=== PATIENT | male | born 1955 | race Caucasian/White ===

== ENCOUNTER 2021-06-15 19:33 | Emergency (ER) | payer MEDICARE, OTHER ==
[2021-06-15 19:50] VITALS: BP 159/81; PULSE 72; RESP 22; TEMP 98.5
--- NOTE | 2021-06-15 20:26 | ED ---
Recheck HPI - General Chief Complaint: Recheck/Abnormal Lab/Rx Stated Complaint: Covid Test Time Seen by Provider: 06/15/21 20:16 Source: patient, RN notes reviewed Mode of arrival: ambulatory Limitations: no limitations - History of Present Illness Initial Comments: Patient is a 66-year-old male that presents to emergency department complaining of needing a Covid test returned [place]. He denied any other symptoms or complaints at this time. He was a well-appearing 66-year-old male who denied any shortness of breath headache nausea vomiting diarrhea constipation fever fatigue chills. - Related Data Allergies Allergy/AdvReac Type Severity Reaction Status Date / Time No Known Allergies Allergy Verified 06/15/21 19:50 Review of Systems ROS Statement: Those systems with pertinent positive or pertinent negative responses have been documented in the HPI. ROS Other: All systems not noted in ROS Statement are negative. Past Medical History Past Medical History: Hyperlipidemia History of Any Multi-Drug Resistant Organisms: None Reported Past Surgical History: No Surgical Hx Reported Past Psychological History: No Psychological Hx Reported Past Alcohol Use History: None Reported, Occasional Past Drug Use History: None Reported General Exam Limitations: no limitations General appearance: alert, in no apparent distress Head exam: Present: atraumatic, normocephalic, normal inspection Eye exam: Present: normal appearance, PERRL, EOMI. Absent: scleral icterus, conjunctival injection, periorbital swelling Neck exam: Present: normal inspection Respiratory exam: Present: normal lung sounds bilaterally. Absent: respiratory distress, wheezes, rales, rhonchi, stridor Cardiovascular Exam: Present: regular rate, normal rhythm, normal heart sounds. Absent: systolic murmur, diastolic murmur, rubs, gallop, clicks Extremities exam: Present: normal inspection, full ROM, normal capillary refill. Absent: tenderness, pedal edema, joint swelling, calf tenderness Neurological exam: Present: alert, oriented X3 Psychiatric exam: Present: normal affect, normal mood Skin exam: Present: warm, dry, intact, normal color. Absent: rash Course Vital Signs 06/15/21 19:45 Temperature 98.5 F Pulse Rate 72 Respiratory 22 Rate Blood Pressure 159/81 O2 Sat by Pulse 98 Oximetry Medical Decision Making - Medical Decision Making 66-year-old male needing a Covid test return to [place]. Covid test ordered. Covid test negative Case discussed with Dr. Salazar, patient discharge home. - Lab Data Lab Results 06/15/21 Range/Units 19:50 Coronavirus (PCR) Not Detected (Not Detectd) Disposition Clinical Impression: Encounter for screening for COVID-19 Disposition: HOME SELF-CARE Condition: Stable Instructions (If sedation given, give patient instructions): Coronavirus Disease 2019 (COVID-19) Additional Instructions: Please return to the Emergency Department if symptoms worsen or any other concerns. Follow-up with primary care as needed. Is patient prescribed a controlled substance at d/c from ED?: No Referrals: None,Stated [Primary Care Provider] - 1-2 days Time of Disposition: 20:32
== END 2021-06-15 20:37 | disposition home or self-care (01) ==
LOC: EC 19:33
DX: Z20.822 Contact with and (suspected) exposure to COVID-19 (principal); E78.5 Hyperlipidemia, unspecified
CPT/HCPCS: 87635; 99282